=== PATIENT | female | born 1970 | race Caucasian/White ===

== ENCOUNTER 2016-11-14 05:22 | Inpatient (IN) | payer BC ==
[2016-10-16 14:59] VITALS: BMI 29.0
--- NOTE | 2016-10-16 15:34 | PAT Medication Instructions ---
Service Date Oct 16, 2016. Current Home Medication List Fexofenadine Hcl (Lorraine Allergy), 1 TAB PO QAM Multiple Vitamins W/ Minerals (Multi Adult Gummies), 1 TAB PO QAM Ranitidine Hcl (Zantac), 75 MG PO QAM Spironolactone (Aldactone), 25 MG PO QAM Venlafaxine Hcl (Venlafaxine Extended Rel), 37.5 MG PO QAM [Nexium], 4.6 MG PO QAM Medication Instructions For Your Scheduled Surgery - Hold the following medications the morning of surgery: Spironolactone (Aldactone), 25 MG PO QAM Multiple Vitamins W/ Minerals (Multi Adult Gummies), 1 TAB PO QAM Fexofenadine Hcl (Lorraine Allergy), 1 TAB PO QAM - Take the following medications the morning of surgery with a sip of water: Venlafaxine Hcl (Venlafaxine Extended Rel), 37.5 MG PO QAM Nexium, 4.6 MG PO QAM Ranitidine Hcl (Zantac), 75 MG PO QAM If you have any questions please call us at [phone] or [phone] ( [place]) or [phone]
--- NOTE | 2016-10-16 16:01 | DIAGNOSTIC IMAGING REPORT ---
TWO VIEW CHEST CLINICAL HISTORY: Preoperative examination. FINDINGS: PA and lateral chest radiographs are compared to study dated 04/28/2014. The cardiomediastinal silhouette is unremarkable. The lungs and pleural spaces are clear. There is no pneumothorax. The bony thorax appears intact. Cholecystectomy clips are noted in the right upper quadrant. IMPRESSION: No active disease in the chest. Electronically signed by: Pilo Ching M.D. 10/16/2016 3:59 PM Dictated Date/Time: 10/16/2016 3:59 PM
[2016-10-16 16:24] LABS: BASO % 0.4 %; BASO ABS # 0.04 K/uL (0-0.2); COMPLETE YES; EOS % 1.9 %; HEMATOCRIT 39.7 % (37-47); IG% 0.2 %; LYMPH % 33.3 %; LYMPH ABS # 3.15 K/uL (1.2-3.4); MEAN CELL VOLUME 81.7 fL (80-100); MEAN CORPUSCULAR HEMOGLOBIN 26.1 pg (25-34); MEAN PLATELET VOLUME 9.9 fL (7.4-10.4); MONO % 5.9 %; NEUT % 58.3 %; PLATELET COUNT 502 K/uL (130-400); RED BLOOD COUNT 4.86 M/uL (4.2-5.4); URINE APPEARANCE CLEAR (CLEAR); URINE BILIRUBIN NEG (NEG); URINE COLOR YELLOW; URINE NITRITE NEG (NEG); URINE SPECIFIC GRAVITY 1.006 (1.000-1.030); UROBILINOGEN NEG (NEG); WHITE BLOOD COUNT 9.47 K/uL (4.8-10.8)
[2016-10-16 16:28] LABS: MANUAL MICROSCOPIC REQUIRED? NO; REVIEW REQ? NO
[2016-10-16 16:32] LABS: PROTHROMBIN TIME (PATIENT) 10.6 SECONDS (9.0-12.0)
[2016-10-16 16:55] LABS: BUN/CREATININE RATIO 10.1 (10-20); CREATININE 0.7 mg/dl (0.60-1.20)
[2016-10-16 16:58] LABS: CALCIUM 9.1 mg/dl (8.5-10.1)
[2016-10-17 07:30] LABS: ESTIMATED AVERAGE GLUCOSE 105 mg/dl; HA1C FLAG Normal (Normal)
--- NOTE | 2016-11-13 14:12 | HISTORY & PHYSICAL EXAMINATION ---
DATE OF ADMISSION: 11/14/2016 CHIEF COMPLAINT: Right hip pain. HISTORY OF PRESENT ILLNESS: The patient is a 45-year-old female with known severe bilateral hip osteoarthritis despite her young age. She recently had a trial of intraarticular corticosteroid injections without significant relief. She continues to have significant pain and disability with activities of daily living and now desires to proceed with right total hip arthroplasty. PAST MEDICAL HISTORY: Heart palpitations from anxiety, depression, acid reflux. PAST SURGICAL HISTORY: Gallbladder surgery, sinus surgery. MEDICATIONS: Venlafaxine 37.5 mg daily, spironolactone 25 mg daily, Zantac p.r.n., Lorraine q.a.m., Mobic 15 mg daily. ALLERGIES: AMOXICILLIN, SULFA, LATEX. SOCIAL HISTORY AND REVIEW OF SYSTEMS: Noncontributory. PHYSICAL EXAMINATION: GENERAL: Well-nourished, well-developed young female who appears her stated age. HEAD, EYES, EARS, NOSE, AND THROAT: Normocephalic, atraumatic, extraocular movements intact, oropharynx pink and moist. NECK: Supple without adenopathy clear. LUNGS: Clear to auscultation bilaterally. HEART: Regular rate and rhythm. ABDOMEN: Soft, nontender, nondistended. EXTREMITIES: The upper extremities are within normal limits. The right hip demonstrates limited range of motion. There is limitation of active and passive internal/external rotation with pain at end range. X-RAYS: X-rays were reviewed. She has severe osteoarthritis about the right hip with complete loss of the joint space. There is deformation of the femoral head. There are large osteophytes about the femoral head and acetabulum. ASSESSMENT: Right hip degenerative joint disease. PLAN: Risks versus benefits were discussed. Consent was obtained. The patient's primary care physician is Monique Romano. Will proceed with right total hip arthroplasty upon preoperative workup and medical clearance.
[~2016-11-14] VITALS: Ht 162.6 cm; Wt 77.7 kg
[2016-11-14] VITALS (10 sets, daily range): BP systolic 97–133; BP diastolic 64–75; PULSE 74–96; TEMP 36.3–37.3; O2SAT 95–100; Ht 162.6 cm; Wt 77.7 kg
[~2016-11-14 05:22] MED LIST: FEXO1TAB49 PO; LACTATED RINGER'S 1000ML IV SCH; MULT1CHW37 PO; NEXIUM PO; RANI150T3 PO; SPIR25TA PO; VENL37.593 PO
[2016-11-14] MEDS ORDERED: GABAPENTIN 300 MG CAP PO SCH (06:00)
[2016-11-14] MEDS ORDERED: LACTATED RINGER'S 1000ML IV SCH ×2 (06:00)
[2016-11-14] MEDS ORDERED: VANCOMYCIN 1GM/270ML NSS 270 ML IV SCH (06:00)
[2016-11-14] MEDS ORDERED: VANCOMYCIN INJ 1,150 MG in SODIUM CHLORIDE 0.9% 250ML 250 ML IV SCH ×2 (06:00→18:00)
[2016-11-14] MEDS ORDERED: ACETAMINOPHEN 500 MG TAB PO SCH (06:00)
[2016-11-14] MEDS ORDERED: LACTATED RINGER'S 500 ML IV SCH (06:00)
[2016-11-14] MEDS ORDERED: ROPIVACAINE 5MG/ML 30 ML 150 MG, BUPIVACAINE/EPINEPHR 0.5% MPF 30 ML, KETOROLAC TROMETH... INFIL SCH ×7 (06:00)
[2016-11-14] MEDS ORDERED: FAMOTIDINE 20 MG TAB PO SCH (06:00)
[2016-11-14] MEDS ORDERED: DEXAMETHASONE 4 MG TAB PO SCH (06:00)
[2016-11-14] MEDS ORDERED: METOCLOPRAMIDE HCL 10 MG TAB PO SCH (06:00)
[2016-11-14] MEDS ORDERED: BACITRACIN 50000 UNIT VIAL ONE (06:29)
[2016-11-14] MEDS ORDERED: ORTHO JOINT ANESTHETIC ONE (06:29)
[2016-11-14] MEDS ORDERED: POVIDONE-IODINE OP SOLN 30 ML BTL ONE (06:29)
[2016-11-14] MEDS ORDERED: ONDANSETRON INJ 2 MG/ML 2 ML VIAL ONE (06:33)
[2016-11-14] MEDS ORDERED: PROPOFOL IV EMULSION 10 MG/ML 20 ML VIAL IV ONE ×3 (06:33→08:11)
[2016-11-14] MEDS ORDERED: MIDAZOLAM HCL 1 MG/ML 2ML VIAL ONE ×2 (06:34→07:09)
[2016-11-14] MEDS ORDERED: FENTANYL CITRATE INJ 50 MCG/1 ML 2 ML VIAL ONE (06:34)
[2016-11-14] MEDS ORDERED: BUPIVACAINE 0.5 % 5 MG/1 ML PF 10ML VIAL ONE (06:37)
[2016-11-14] MEDS ORDERED: ATROPINE SULFATE 0.1 MG/ML 5ML SYR IV PRN (06:45)
[2016-11-14] MEDS: TRANEXAMIC ACID INJ 1,000 MG in SODIUM CHLORIDE 0.9% 100ML 100 ML IV SCH ×2 (06:45→11:12)
[2016-11-14] MEDS ORDERED: EpHEDrine SULFATE INJ 50 MG/ML AMP IV PRN (06:45)
[2016-11-14] MEDS ORDERED: ONDANSETRON INJ 2 MG/ML 2 ML VIAL IV PRN ×2 (06:45→08:45)
[2016-11-14] MEDS ORDERED: FENTANYL CITRATE INJ 50 MCG/1 ML 2 ML VIAL IV PRN (06:45)
--- NOTE | 2016-11-14 06:50 | History & Physical Bridge Note ---
H&P Re-Evaluation Bridge Note: I have examined the patient, reviewed the History & Physical and in the interval since the performance of the History & Physical I have noted the following changes of clinical significance: No changes noted
[2016-11-14] MEDS ORDERED: PHENYLEPHRINE HCL INJ 10 MG/ML VIAL ONE (07:41)
[2016-11-14] MEDS ORDERED: EpHEDrine SULFATE 50MG/5ML SYR ONE (07:42)
--- NOTE | 2016-11-14 07:56 | [facility] Post Operative Brief Note ---
Immediate Operative Summary Operative Date November 14, 2016. Pre-Operative Diagnosis Right hip degenerative joint disease Post-Operative Diagnosis Right hip degenerative joint disease Procedure(s) Performed Right Total Hip Arthroplasty Surgeon DR. Etienne Maciel Laboratory Courier Surgeon(s) Dale Betancur PA-C Estimated Blood Loss 150ML Findings severe OA Specimens A: Right Femoral head Disposition Recovery Room / PACU
--- NOTE | 2016-11-14 08:39 | OPERATIVE REPORT ---
DATE OF OPERATION: 11/14/2016 PREOPERATIVE DIAGNOSIS: Osteoarthritis right hip. POSTOPERATIVE DIAGNOSIS: Osteoarthritis right hip. PROCEDURE: Right connective total hip arthroplasty. SURGEON: Dr. Maciel. ELECTION SUPERVISOR: Dale Betancur PA-C. ANESTHESIA: spinal. COMPLICATIONS: None. OPERATION AND FINDINGS: PROCEDURE: Following induction of adequate spinal anesthesia, the patient was placed in left lateral decubitus position and right Sandy-Langenbeck incision was made. Subcutaneous tissue was sharply dissected. Electrocautery used for hemostasis. The fascia was incised throughout the length of the wound and a baker scissor placed beneath the short external rotators. The pyriformis was tagged with #1 Vicryl. The short external rotators were divided from the posterior aspect of the femur using electrocautery. These were swept posteriorly. A T-capsulotomy incision was made and the hip was dislocated using a combination of flexion, adduction, and internal rotation. Exposure of the femoral neck with old-style Hohmann and a blunt Hohmann was carried out and a femoral rasp was utilized as a guide for making the appropriate level femoral neck cut. This bone fragment was removed and reserved on the back table. Next, attention was turned to the acetabulum where bone hook was used to retract the femur while the offset retractors were placed anterior and posteriorly. A double-angled Hohmann was placed in superior and anterior position exposing the acetabulum nicely. Acetabular labrum as well as posterior capsule elements were removed using a long knife and a long pickup. Fovea centralis was cleared of all soft tissue. Sequential reamings were carried up to a size 52 and decision was made to proceed with impaction of a 52 trabecular metal cup. This was impacted and held using a single 35 mm bone screw. The acetabular liner was placed with 15 of elevated posterior wall in the superior and posterior position. Next, attention was turned to the femoral portion of the case where a Bovie and pickup was used to further clear short external rotators from their insertion on the femur. Box osteotome was used to gain access to the femoral canal and the T-handled rasp and a rattail rasp were used to further open and lateral the canal. Sequentially raspings were carried up to a size 3 which gave good fit and fill of the proximal femur. A trial reduction was carried out and size 3 offset femoral neck component was chosen as the size to be used. A +0 x 36 mm ceramic femoral head was impacted into position, +0 head was utilized. The trial reduction was stable in all degrees of rotation with no ycho-ot-rent impingement. The hip was dislocated. The trial components were removed and the final femoral stem, neck, and femoral head combination were assembled on the back table and impacted into position. Hip was relocated. Range of motion checked once again successful and the wound was irrigated. The pyriformis repaired to the greater trochanter using #1 Vicryl [id number] suture. A Hemovac drain was placed and the fascia was closed using #1 Vicryl, subcutaneous tissue was closed using 0 Dexon, and skin was closed with claire. Sterile dressing of Adaptic, 4 x 4's, ABDs, and foam tape was applied. The patient tolerated the procedure well. Due to the complex nature of the procedure, the entire surgery was performed with the operational assistance of Dale Betancur PA-C. The stonecutter assistant, under direct supervision, was involved in the actual performance of all aspects of the surgical procedure including hemostasis, tissue retraction and incision, instrument management, patient positioning, and wound closure. I attest to the content of the Intraoperative Record and any orders documented therein. Any exceptions are noted below. ALLIE
[2016-11-14] MEDS ORDERED: MoRPHine SULFATE 2 MG/ML CARP IV PRN (08:45)
[2016-11-14] MEDS ORDERED: MAGNESIUM HYDROXIDE SUSP 30 ML UDC PO PRN (08:45)
[2016-11-14] MEDS ORDERED: ZOLPIDEM TARTRATE 5 MG TAB PO PRN (08:45)
[2016-11-14] MEDS ORDERED: METOCLOPRAMIDE HCL INJ 5 MG/ML 2 ML VIAL IV PRN (08:45)
[2016-11-14] MEDS ORDERED: ALUMINUM/MAGNESIUM/SIMETH (MAALOX MAX) 30 ML UDC PO PRN (08:45)
--- NOTE | 2016-11-14 09:10 | Anesthesiology Progress Note ---
Anesthesia Post Op Note Date & Time November 14, 2016 at 09:10 Vital Signs Pain Intensity: 0 Vital Signs Past 12 Hours Date Time Temp Pulse Resp B/P Pulse Ox O2 Delivery O2 Flow Rate FiO2 11/14/16 09:00 76 16 110/66 100 Nasal Cannula 2 11/14/16 08:50 75 16 125/71 100 Mask 6 11/14/16 08:40 74 16 119/66 100 Mask 10 11/14/16 08:32 36.7 67 16 110/70 100 Mask 10 11/14/16 06:10 36.6 78 18 118/75 98 Room Air Notes Mental Status: alert / awake / arousable, participated in evaluation Pt Amnestic to Procedure: Yes Nausea / Vomiting: adequately controlled Pain: adequately controlled Airway Patency, RR, SpO2: stable & adequate BP & HR: stable & adequate Hydration State: stable & adequate Neuraxial Anesthesia: was administered, sensory block is resolving Anesthetic Complications: no major complications apparent
--- NOTE | 2016-11-14 09:39 | DIAGNOSTIC IMAGING REPORT ---
RIGHT PELVIS/UNILATERAL HIP 1 VIEW CLINICAL HISTORY: Postoperative evaluation. COMPARISON: Right hip radiographs March 24, 2013. FINDINGS: Alignment of the total right hip arthroplasty is anatomic. There is no periprosthetic fracture or unexpected radiopaque foreign body. Surgical drain and skin claire are present. There is moderate to severe arthritis of the left hip. IMPRESSION: Expected findings following total right hip arthroplasty. Electronically signed by: Abhay Albarran M.D. 11/14/2016 9:38 AM Dictated Date/Time: 11/14/2016 9:36 AM
[2016-11-14] MEDS ORDERED: MoRPHine SULFATE 10 MG/ML CARP/VIAL IV PRN (10:00)
[2016-11-14] MEDS ORDERED: MoRPHine SULFATE 4 MG/ML 1 ML CARP\\VIAL IV PRN (10:00)
[2016-11-14] MEDS: D5W AND 1/2NSS + 20MEQ KCL 1,000 ML IV SCH ×2 (11:09→21:47)
[2016-11-14] MEDS: MULTIVITAMIN TAB PO SCH (13:06)
[2016-11-14] MEDS: SPIRONOLACTONE 25 MG TAB PO SCH (13:06)
[2016-11-14] MEDS: FERROUS GLUCONATE 324 MG TAB PO SCH ×2 (13:06→17:56)
[2016-11-14] MEDS: PANTOprazole SOD 40 MG TAB PO SCH (13:07)
[2016-11-14] MEDS: VENLAFAXINE HCL XR 37.5 MG CAPXR PO SCH (13:07)
[2016-11-14] MEDS ORDERED: NURSING VERBAL MED ORDER ONE (13:30)
[2016-11-14] MEDS: KETOROLAC TROMETHAMINE 30 MG/ML VIAL IV. SCH ×2 (14:01→20:15)
[2016-11-14] MEDS: ACETAMINOPHEN 500 MG TAB PO SCH ×2 (14:01→21:48)
[2016-11-14] MEDS: DOCUSATE SODIUM 100 MG CAP PO SCH (21:47)
[2016-11-14] MEDS: ASPIRIN 81 MG ECTAB PO SCH (21:47)
[2016-11-14] MEDS: PREGABALIN 75 MG CAP PO SCH (21:48)
[2016-11-14] MEDS: OXYCODONE HCL IR 5 MG TAB (IMMEDIATE RELEASE) PO PRN (23:12)
[2016-11-15] MEDS: KETOROLAC TROMETHAMINE 30 MG/ML VIAL IV. SCH ×2 (02:08→08:32)
[2016-11-15 03:15] VITALS: BP 103/64; PULSE 97; TEMP 36.6; O2SAT 99
[2016-11-15 05:50] LABS: BASO % 0.1 %; BASO ABS # 0.01 K/uL (0-0.2); COMPLETE YES; HEMATOCRIT 31.3 % (37-47); IG% 0.3 %; LYMPH % 11.9 %; LYMPH ABS # 2.17 K/uL (1.2-3.4); MEAN CELL VOLUME 80.5 fL (80-100); MEAN CORPUSCULAR HEMOGLOBIN 25.2 pg (25-34); MEAN CORPUSCULAR HGB CONC 31.3 g/dl (32-36); MEAN PLATELET VOLUME 9.4 fL (7.4-10.4); NEUT % 79.7 %; PLATELET COUNT 385 K/uL (130-400); RED BLOOD COUNT 3.89 M/uL (4.2-5.4); WHITE BLOOD COUNT 18.27 K/uL (4.8-10.8)
[2016-11-15] MEDS: ACETAMINOPHEN 500 MG TAB PO SCH ×3 (06:00→21:32)
[2016-11-15 06:26] LABS: CREATININE 0.59 mg/dl (0.60-1.20)
[2016-11-15 06:27] LABS: CALCIUM 8.1 mg/dl (8.5-10.1); POTASSIUM 4.6 mmol/L (3.5-5.1)
[2016-11-15] MEDS: D5W AND 1/2NSS + 20MEQ KCL 1,000 ML IV SCH (06:39)
[2016-11-15] MEDS ORDERED: DEXAMETHASONE INJ 10 MG in SYRINGE 0 ML IV SCH (07:30)
[2016-11-15 07:56] VITALS: BP 105/66; PULSE 76; TEMP 36.6; O2SAT 98
--- NOTE | 2016-11-15 08:10 | Anesthesiology Progress Note ---
Anesthesia Post Op Note Date & Time November 15, 2016 at 08:09 Vital Signs Pain Intensity: 3.0 Vital Signs Past 12 Hours Date Time Temp Pulse Resp B/P Pulse Ox O2 Delivery O2 Flow Rate FiO2 11/15/16 07:56 36.6 76 17 105/66 98 Room Air 11/15/16 03:15 36.6 97 18 103/64 99 Room Air 11/14/16 23:50 Room Air 11/14/16 22:55 36.9 86 18 103/64 98 Room Air 11/14/16 20:10 Room Air Notes Mental Status: alert / awake / arousable, participated in evaluation Pt Amnestic to Procedure: Yes Nausea / Vomiting: adequately controlled Pain: adequately controlled Airway Patency, RR, SpO2: stable & adequate BP & HR: stable & adequate Hydration State: stable & adequate Neuraxial Anesthesia: was administered, sensory block resolved Anesthetic Complications: no major complications apparent
--- NOTE | 2016-11-15 08:21 | Orthopedic Progress Note ---
Orthopedic Progress Note Date of Service November 15, 2016. Subjective Post OP Day: 1 Reports: complaints (right foot numbness), feeling well, Denies: SOB, calf pain , chest pain, light headedness, nausea / vomiting Additional Notes: Pt awake, alert. Pain controlled presently. States that her foot has some numbness in it and she can't dorsiflex the foot very well. No other complaints. Asked about her Nexium which was not ordered. Explained that the hospital usually does not carry that on their formulary and that Protonix has been ordered for her. She states that it seems to be helping her and is ok with continuing the Protonix for now. Objective calves soft nontender, hip located, dressing C/D/I (Prevena intact), A&O x3, toes mobile She has good plantar flexion. Dorsiflexion is weak. She can dorsiflex the great toe and foot but cannot perform full dorsiflexion. Date Time Temp Pulse Resp B/P Pulse Ox O2 Delivery O2 Flow Rate FiO2 11/15/16 07:56 36.6 76 17 105/66 98 Room Air 11/15/16 03:15 36.6 97 18 103/64 99 Room Air 11/14/16 23:50 Room Air 11/14/16 22:55 36.9 86 18 103/64 98 Room Air 11/14/16 20:10 Room Air 11/14/16 19:43 37.3 90 18 123/75 95 Room Air 11/14/16 15:50 36.5 88 18 107/67 97 Room Air 11/14/16 12:44 96 18 107/68 100 Nasal Cannula 2.0 89 11/14/16 11:43 88 16 101/67 100 Nasal Cannula 2.0 11/14/16 10:45 80 16 97/64 100 Nasal Cannula 2.0 11/14/16 10:14 74 16 112/74 100 Nasal Cannula 2.0 11/14/16 09:40 Nasal Cannula 2.0 11/14/16 09:40 100 Nasal Cannula 2.0 11/14/16 09:40 36.3 74 16 106/66 100 Nasal Cannula 11/14/16 09:30 70 16 112/68 100 Nasal Cannula 2 11/14/16 09:20 64 16 112/71 100 Nasal Cannula 2 11/14/16 09:10 36.4 81 16 110/71 99 Nasal Cannula 2 11/14/16 09:00 76 16 110/66 100 Nasal Cannula 2 11/14/16 08:50 75 16 125/71 100 Mask 6 11/14/16 08:40 74 16 119/66 100 Mask 10 11/14/16 08:32 36.7 67 16 110/70 100 Mask 10 Laboratory Results 24 Hours: Test 11/15/16 05:26 White Blood Count 18.27 K/uL Red Blood Count 3.89 M/uL Hemoglobin 9.8 g/dL Hematocrit 31.3 % Mean Corpuscular Volume 80.5 fL Mean Corpuscular Hemoglobin 25.2 pg Mean Corpuscular Hemoglobin Concent 31.3 g/dl Platelet Count 385 K/uL Mean Platelet Volume 9.4 fL Neutrophils (%) (Auto) 79.7 % Lymphocytes (%) (Auto) 11.9 % Monocytes (%) (Auto) 8.0 % Eosinophils (%) (Auto) 0.0 % Basophils (%) (Auto) 0.1 % Neutrophils # (Auto) 14.57 K/uL Lymphocytes # (Auto) 2.17 K/uL Monocytes # (Auto) 1.46 K/uL Eosinophils # (Auto) 0.00 K/uL Basophils # (Auto) 0.01 K/uL Assessment & Plan Assessment: POD 1 s/p Right FROILAN Mild drop foot Plan: Drop foot may be due to intra op injection. Continue to follow. Usually clears within 48 hours. If continues to be present, she may need an AFO brace. PT/OT today Planning for HH upon dc. Inhouse Planning Pain Management: Toradol, Morphine, PO Tylenol, Oxy IR DVT Prophylaxis: TEDs, SCDs, ASA Discharge Planning Discharge Planning: home with home health Pain Management: PO Tylenol, Oxy IR DVT Prophylaxis: TEDs, ASA Therapy: Physical Therapy
[2016-11-15] MEDS: MULTIVITAMIN TAB PO SCH (08:32)
[2016-11-15] MEDS: FERROUS GLUCONATE 324 MG TAB PO SCH ×3 (08:32→17:24)
[2016-11-15] MEDS: ASPIRIN 81 MG ECTAB PO SCH ×2 (08:32→20:40)
[2016-11-15] MEDS: PREGABALIN 75 MG CAP PO SCH ×2 (08:32→20:40)
[2016-11-15] MEDS: DOCUSATE SODIUM 100 MG CAP PO SCH ×2 (08:32→20:40)
[2016-11-15] MEDS: VENLAFAXINE HCL XR 37.5 MG CAPXR PO SCH (08:33)
[2016-11-15] MEDS: PANTOprazole SOD 40 MG TAB PO SCH (08:33)
[2016-11-15] MEDS: SPIRONOLACTONE 25 MG TAB PO SCH (08:33)
[2016-11-15 10:25] VITALS: BP 106/68; PULSE 71; O2SAT 97
[2016-11-15] MEDS: OXYCODONE HCL IR 5 MG TAB (IMMEDIATE RELEASE) PO PRN ×2 (11:29→20:41)
--- NOTE | 2016-11-15 14:03 | Discharge Instructions ---
Discharge Instructions Date of Service November 15, 2016. Admission Reason for Admission: Right Hip Degenerative Joint Disease Discharge Discharge Diagnosis / Problem: Right Hip Djd Discharge Goals Goal(s): Decrease discomfort, Improve function Activity Recommendations Activity Limitations: per Instructions/Follow-up section Weightbearing Status: Right weightbearing (as tolerated) . Instructions / Follow-Up Instructions / Follow-Up ACTIVITY RECOMMENDATIONS: SELF CARE INSTRUCTIONS AFTER TOTAL HIP REPLACEMENT Until the incision and soft tissues around your hip have healed, there is a possibility that the hip prosthesis could dislocate. A. Observe the following precautions to prevent dislocation: 1. Don't bend your hip greater than 90 degrees. 2. Avoid crossing your legs or ankles while standing or lying. 3. Sit with your feet placed 6 inches apart. 4. When sitting, keep your knees below your hips. Sit on a firm surface, avoid deep, soft chairs and couches. Use an elevated toilet seat in the bathroom. 5. Don't bend over at the waist. Use a long handled shoehorn and a sock aid to help you put on your shoes and socks. A assistant chief train dispatcher can help you pickle processor objects that are too high or too low to reach. 6. Keep car riding to a minimum for at least one month after surgery. B. Your balance may be shaky for a while. Use crutches or a walker until directed by your doctor. C. Use hand rails when walking on stairs. D. Wear low heeled shoes with non-slip soles. E. Be sure that your floors are free of things that could trip you - throw rugs , electrical cords, small objects. Avoid wet and waxed floors, especially with crutches and canes. F. Try to walk several times a day with rest periods between. G. Continue with all the exercises taught to you in the hospital. Again, make walking a part of your daily routine. SPECIAL CARE INSTRUCTIONS: VERY IMPORTANT TO READ AND REVIEW A. You may still be at risk for phlebitis and blood clots. 1. Wear surgical stockings (CLOVIS hose) for 2 weeks after surgery to improve circulation and reduce swelling. 2. Take Aspirin 81mg twice daily for 4 weeks or as directed by your doctor. This is your blood thinner. 3. High risk patients may be prescribed a stronger blood thinner if necessary. 4. If you are on Coumadin normally, your family doctor/manufacturing applications engineer should monitor your blood work. Expect a phone call the day of or the day after bloodwork is drawn to adjust your dosage. B. You must take antibiotics before having dental work, bladder, bowel and other surgery. Your doctor will provide you with a permanent card to carry describing precautions. C. Call [facility] if you have a fever, redness or swelling around the incision, cloudy drainage from incision, or sudden increase in pain in your hip, not relieved by your regular pain medication. D. Please call the office at if you have any concerns or questions about your operation or recovery. * YOU MAY SHOWER, NO TUB BATHS UNTIL CLEARED BY YOUR DOCTOR. * WEAR CLOVIS HOSE 20 HOURS PER DAY FOR 2 WEEKS. * YOU SHOULD USE A WALKER OR CRUTCHES FOR 2-4 WEEKS. THIS WILL HELP PREVENT STRAIN ON YOUR HIP MUSCLE AND ALLOW IT TO HEAL PROPERLY. YOU MAY WEAN TO A CANE TOLERATED. * MOST PATIENTS WILL HAVE HOME NURSING FOR THERAPY. IF YOU DECIDE TO DO OUTPATIENT PHYSICAL THERAPY, PLEASE SCHEDULE THIS 3 TIMES PER WEEK. * Prevena- This is a large suction dressing covering your incision. This will help pull any excess drainage from the wound and allow your incision to heal properly. You may shower with this if you can keep the unit outside of the shower. If any bleeding or leakage is noted please call your doctor's office. This will remain on your incision for 7 days and then should be removed. This can be done yourself or by the home nursing staff if applicable. The entire unit is disposable once removed. Once removed, keep incision clean and dry. If redness or drainage is noted, please call your surgeon. . FOLLOW UP VISIT: If appointment is not already scheduled: Please call [facility] to make a follow-up appointment for 2 weeks after your surgery at . Current Hospital Diet Patient's current hospital diet: Regular Diet Discharge Diet Recommended Diet: Regular Diet Procedures Procedures Performed: Right Total Hip Arthroplasty Pending Studies Studies pending at discharge: no Laboratory Results Hemoglobin A1c Test 10/16/16 15:40 Range/Units Estimated Average Glucose 105 mg/dl Hemoglobin A1c 5.3 4.5-5.6 % Medical Emergencies . Who to Call and When: Medical Emergencies: If at any time you feel your situation is an emergency, please call 911 immediately. . Non-Emergent Contact Non-Emergency issues call your: Surgeon Call Non-Emergent contact if: temperature is above 101.5, your pain is not controlled, your pain is worsening, wound has increased drainage, wound has increased redness . "Provider Documentation" section prepared by Jose Rivas. . VTE Core Measure Inpt VTE Proph given/why not?: Other Anticoagulation, T.E.D. Stockings, SCD's [place] Drug Monitoring Program Search Results: patient reviewed within database, no issues identified
[2016-11-15 15:16] VITALS: BP 127/73; PULSE 84; TEMP 36.6; O2SAT 96
[2016-11-15 23:35] VITALS: BP 115/73; PULSE 83; TEMP 36.7; O2SAT 99
[2016-11-16] MEDS: ACETAMINOPHEN 500 MG TAB PO SCH (05:53)
[2016-11-16 07:10] VITALS: BP 111/75; PULSE 72; TEMP 36.6; O2SAT 98
--- NOTE | 2016-11-16 08:20 | Orthopedic Progress Note ---
Orthopedic Progress Note Date of Service November 16, 2016. Subjective Post OP Day: 2 Reports: complaints (R FOOT DROP PERSISTS ), feeling well, pain controlled w PO medications, Denies: SOB, calf pain, light headedness, nausea / vomiting Objective calves soft nontender, N/V intact, hip located, dressing C/D/I, A&O x3, toes mobile Date Time Temp Pulse Resp B/P Pulse Ox O2 Delivery O2 Flow Rate FiO2 11/16/16 07:10 36.6 72 16 111/75 98 Room Air 11/15/16 23:42 Room Air 11/15/16 23:35 36.7 83 16 115/73 99 Room Air 11/15/16 16:30 Room Air 11/15/16 15:16 36.6 84 18 127/73 96 Room Air 11/15/16 10:25 71 97 Assessment & Plan Assessment: POD 2 s/p Right FROILAN FOOT DROP Plan: Drop foot PERSITS WILL NEED AFO CONSULT PLACED NOT AVAILIBLE UNTIL FRIDAY PT/OT today Planning for HH upon dc. PT OK W DC AND GET BRACE AT HOME Inhouse Planning Pain Management: Toradol, Morphine, PO Tylenol, Oxy IR DVT Prophylaxis: TEDs, SCDs, ASA Discharge Planning Discharge Planning: home with home health Pain Management: PO Tylenol, Oxy IR DVT Prophylaxis: TEDs, ASA Therapy: Physical Therapy
[2016-11-16] MEDS: OXYCODONE HCL IR 5 MG TAB (IMMEDIATE RELEASE) PO PRN (08:52)
[2016-11-16] MEDS: PANTOprazole SOD 40 MG TAB PO SCH (08:53)
[2016-11-16] MEDS: MULTIVITAMIN TAB PO SCH (08:53)
[2016-11-16] MEDS: DOCUSATE SODIUM 100 MG CAP PO SCH (08:53)
[2016-11-16] MEDS: FERROUS GLUCONATE 324 MG TAB PO SCH (08:53)
[2016-11-16] MEDS: ASPIRIN 81 MG ECTAB PO SCH (08:53)
[2016-11-16] MEDS: VENLAFAXINE HCL XR 37.5 MG CAPXR PO SCH (08:54)
[2016-11-16] MEDS: SPIRONOLACTONE 25 MG TAB PO SCH (08:54)
[2016-11-16] MEDS: PREGABALIN 75 MG CAP PO SCH (08:59)
[2016-11-16] MEDS ORDERED: ASPEC81 PO (09:16)
[2016-11-16] MEDS ORDERED: OXYSR10 PO (09:16)
[2016-11-16] MEDS ORDERED: RXC5 PO (09:16)
[2016-11-16] MEDS ORDERED: ACET-1138 PO (09:16)
[2016-11-16 10:44] VITALS: BP 111/75; PULSE 72; TEMP 36.6; O2SAT 98
--- NOTE | 2016-11-29 10:45 | DISCHARGE SUMMARY ---
CHIEF COMPLAINT: Right hip pain. Please see complete history and physical examination. HOSPITAL COURSE: The patient underwent right total hip arthroplasty without complication. She tolerated the procedure well and was discharged to recovery room in stable condition. Her postoperative course was relatively uneventful. Her postoperative pain was reasonably well-controlled with a combination of spinal anesthesia, intraoperative joint injection, IV, and oral pain medications. She was started on aspirin for DVT prophylaxis. She also utilized CLOVIS stockings and SCDs for additional prophylaxis. Her H&H was stable and did not require transfusion. Her surgical drain was discontinued by postoperative day 2, her surgical dressing will remain in place for approximately 7 days postoperative. She tolerated postoperative physical therapy reasonably well, she was ambulating and transferring appropriately. She was observing all total hip precautions. She was discharged home on postoperative day 2. She will continue her physical therapy at home. She will continue her aspirin for DVT prophylaxis and follow up in our office in approximately 10-14 days for her initial postop evaluation.
[2017-04-30] MEDS ORDERED: ESOM20CA PO (09:52)
[2017-04-30] MEDS ORDERED: CLR10 PO (09:52)
[2017-04-30] MEDS ORDERED: LOVA10TA3 PO (09:52)
[2017-04-30] MEDS ORDERED: VENL75CA73 PO (09:52)
[2017-04-30] MEDS ORDERED: ACET-1256 PO (09:53)
[2017-04-30] MEDS ORDERED: [UNRECOGNIZED DRUG - CODE] PO (09:55)
[2017-04-30] MEDS ORDERED: VITACAP26 PO (09:55)
== END 2016-11-16 12:31 | disposition home health service (06) | DRG 470 ==
LOC: ENRESERVDT → ENRESERVTM → C.ACU 05:22 → C.3E 08:38
PROC: 0SR903A Replacement of Right Hip Joint with Ceramic Synthetic Substitute, Uncemented, Open Approach (ICD-10-PCS; principal; 2016-11-14 07:00)
DX: M16.11 Unilateral primary osteoarthritis, right hip (principal); M21.371 Foot drop, right foot; K21.9 Gastro-esophageal reflux disease without esophagitis; F32.9 Major depressive disorder, single episode, unspecified; F41.9 Anxiety disorder, unspecified; Z79.899 Other long term (current) drug therapy

== ENCOUNTER 2017-05-14 06:48 | Inpatient (IN) | payer BC ==
--- NOTE | 2017-04-30 10:25 | PAT Medication Instructions ---
Service Date Apr 30, 2017. Current Home Medication List Acetaminophen (Tylenol), 1,000 MG PO PRN\ Esomeprazole Magnesium (Nexium), 20 MG PO QAM Loratadine (Claritin), 10 MG PO QAM Lovastatin (Mevacor), 10 MG PO QAM Multiple Vitamins W/ Minerals (Multi Adult Gummies), 1 TAB PO QPM Ranitidine Hcl (Zantac), 75 MG PO PRN Spironolactone (Aldactone), 25 MG PO QAM Venlafaxine Hcl (Venlafaxine Extended Rel), 75 MG PO QPM Vitamin E (Hhvb-G-Vfahs 1000), 1,000 UNITS PO QPM Vitamins C & E (Vitamin C), 1 TAB PO QPM Medication Instructions For Your Scheduled Surgery - Hold the following medications 2 weeks prior to surgery: Vitamin E (Mgoc-O-Whpyz 1000), 1,000 UNITS PO QPM - Hold the following medications the morning of surgery: Loratadine (Claritin), 10 MG PO QAM Spironolactone (Aldactone), 25 MG PO QAM - Take the following medications the morning of surgery with a sip of water: Ranitidine Hcl (Zantac), 75 MG PO PRN (if needed) Lovastatin (Mevacor), 10 MG PO QAM Esomeprazole Magnesium (Nexium), 20 MG PO QAM Acetaminophen (Tylenol), 1,000 MG PO PRN (if needed, can take up to four hours before surgery) - Take the following medications as scheduled the night before surgery: Vitamins C & E (Vitamin C), 1 TAB PO QPM Venlafaxine Hcl (Venlafaxine Extended Rel), 75 MG PO QPM Ranitidine Hcl (Zantac), 75 MG PO PRN (if needed) Multiple Vitamins W/ Minerals (Multi Adult Gummies), 1 TAB PO QPM If you have any questions please call us at [phone] or [phone] or [phone]
[2017-04-30 11:18] LABS: BASO % 0.5 %; BASO ABS # 0.04 K/uL (0-0.2); COMPLETE YES; EOS % 1.9 %; HEMATOCRIT 35.9 % (37-47); IG% 0.2 %; LYMPH % 29.7 %; LYMPH ABS # 2.49 K/uL (1.2-3.4); MEAN CELL VOLUME 78.7 fL (80-100); MEAN CORPUSCULAR HEMOGLOBIN 25.7 pg (25-34); MEAN CORPUSCULAR HGB CONC 32.6 g/dl (32-36); MEAN PLATELET VOLUME 9.9 fL (7.4-10.4); MONO % 6.6 %; NEUT % 61.1 %; PLATELET COUNT 488 K/uL (130-400); RED BLOOD COUNT 4.56 M/uL (4.2-5.4); WHITE BLOOD COUNT 8.37 K/uL (4.8-10.8)
[2017-04-30 11:18] LABS: URINE APPEARANCE CLEAR (CLEAR); URINE BILIRUBIN NEG (NEG); URINE COLOR YELLOW; URINE NITRITE NEG (NEG); URINE SPECIFIC GRAVITY 1.007 (1.000-1.030); UROBILINOGEN NEG (NEG)
[2017-04-30 11:21] LABS: MANUAL MICROSCOPIC REQUIRED? NO; REVIEW REQ? NO
[2017-04-30 11:24] LABS: ESTIMATED AVERAGE GLUCOSE 103 mg/dl; HA1C FLAG Normal (Normal)
[2017-04-30 11:25] LABS: PARTIAL THROMBOPLASTIN RATIO 1.1; PROTHROMBIN TIME (PATIENT) 10.6 SECONDS (9.0-12.0)
[2017-04-30 11:26] LABS: BUN/CREATININE RATIO 8.9 (10-20); CREATININE 0.67 mg/dl (0.60-1.20); POTASSIUM 4.4 mmol/L (3.5-5.1)
--- NOTE | 2017-05-13 14:34 | HISTORY & PHYSICAL EXAMINATION ---
DATE OF ADMISSION: 05/14/2017 CHIEF COMPLAINT: Left hip pain. HISTORY OF PRESENT ILLNESS: The patient is a 46-year-old female with known osteoarthritis about her left hip. She had a previous right hip arthroplasty in the recent past. She has done well with this. She also has known severe osteoarthritis about her left hip, which affects her activities of daily living. She has pain with prolonged weightbearing and standing activities. She has difficulty with any kneeling, bending, or squatting activities. She now desires to proceed with left total hip arthroplasty. PAST MEDICAL HISTORY: Depression, acid reflux, and osteoarthritis. PAST SURGICAL HISTORY: Right hip as above, cholecystectomy, and sinus surgery. MEDICATIONS: Venlafaxine 37.5 mg daily, spironolactone 25 mg daily, Zantac p.r.n., and Nexium q.a.m. ALLERGIES: INCLUDE AMOXICILLIN, SULFA AND LATEX, WHICH ALL CAUSE HIVES. SOCIAL HISTORY AND REVIEW OF SYSTEMS: Noncontributory. PHYSICAL EXAMINATION: GENERAL: Well-nourished and well-developed young female, who appears her stated age. HEENT: Normocephalic and atraumatic. Extraocular movements intact. Oropharynx is pink and moist. NECK: Supple without adenopathy. LUNGS: Clear to auscultation bilaterally. HEART: Regular rate and rhythm. ABDOMEN: Soft, nontender, and nondistended. EXTREMITIES: Upper extremities are within normal limits. Left hip demonstrates limited range of motion. There is limitation of active and passive internal/external rotation with pain at end range. X-RAYS: X-rays were reviewed. The right hip demonstrates well-aligned total hip. The left hip demonstrates severe osteoarthritis with complete loss of the joint space. There is osteophyte formation about the femoral head and acetabulum. ASSESSMENT: Left hip degenerative joint disease. PLAN: Risks versus benefits were discussed. Consent was obtained. The patient's primary care physician is Francia Romano, nurse practitioner. We will proceed with left total hip arthroplasty upon preop workup and medical clearance. ALLIE
[~2017-05-14] VITALS: Ht 162.6 cm; Wt 79.5 kg
[2017-05-14] VITALS (7 sets, daily range): BP systolic 104–118; BP diastolic 67–80; PULSE 64–80; TEMP 36.5–37; O2SAT 96–100; Ht 162.6 cm; Wt 79.5 kg
[2017-05-14] MEDS: TRANEXAMIC ACID INJ 1,000 MG in SYRINGE 0 ML IV SCH ×2 (06:30→09:16)
[~2017-05-14 06:48] MED LIST changes: +ACET-1256 PO; +ACETAMINOPHEN 500 MG TAB PO SCH; +BUPIVACAINE 0.5 % 5 MG/1 ML PF 10ML VIAL ONE; +CEFAZOLIN 2000MG IV PUSH 10 ML IV SCH; +CLR10 PO; +CeleBREX 200 MG CAP PO SCH; +DEXAMETHASONE 4 MG TAB PO SCH; +ESOM20CA PO; +FAMOTIDINE 20 MG TAB PO SCH; -FEXO1TAB49 PO; +GABAPENTIN 300 MG CAP PO SCH; +LACTATED RINGER'S 1000ML 1,000 ML IV SCH; +LACTATED RINGER'S 1000ML 500 ML IV SCH; -LACTATED RINGER'S 1000ML IV SCH; +LOVA10TA3 PO; +METOCLOPRAMIDE HCL 10 MG TAB PO SCH; -NEXIUM PO; +ROPIVACAINE 5MG/ML 30 ML 150 MG, BUPIVACAINE 0.5% MPF INJ 30 ML, EpINEphrine HCL INJ 0.... INFIL SCH; -VENL37.593 PO; +VENL75CA73 PO; +VITACAP26 PO; +[UNRECOGNIZED DRUG - CODE] PO
[2017-05-14] MEDS ORDERED: LIDOCAINE HCL 2% 2 ML VIAL (20MG/ML) ONE (07:44)
[2017-05-14] MEDS: LACTATED RINGER'S 1000ML IV SCH ×2 (07:45→08:55)
[2017-05-14] MEDS ORDERED: PROPOFOL IV EMULSION 10 MG/ML 20 ML VIAL IV ONE ×2 (07:47→09:47)
[2017-05-14] MEDS ORDERED: MIDAZOLAM HCL 1 MG/ML 2ML VIAL ONE ×3 (07:48→09:37)
[2017-05-14] MEDS ORDERED: FENTANYL CITRATE INJ 50 MCG/1 ML 2 ML VIAL ONE (07:48)
[2017-05-14] MEDS ORDERED: ATROPINE SULFATE 0.1 MG/ML 5ML SYR IV PRN (08:00)
[2017-05-14] MEDS ORDERED: EpHEDrine SULFATE INJ 50 MG/ML AMP IV PRN (08:00)
[2017-05-14] MEDS ORDERED: ONDANSETRON INJ 2 MG/ML 2 ML VIAL IV PRN ×2 (08:00→11:00)
[2017-05-14] MEDS ORDERED: FENTANYL CITRATE INJ 50 MCG/1 ML 2 ML VIAL IV PRN (08:00)
[2017-05-14] MEDS ORDERED: DEXAMETHASONE SOD INJ 4 MG/ML VIAL ONE (08:32)
[2017-05-14] MEDS ORDERED: ONDANSETRON INJ 2 MG/ML 2 ML VIAL ONE (08:32)
[2017-05-14] MEDS ORDERED: CLINDAMYCIN 600 MG/54 ML D5W IV ONE (08:50)
[2017-05-14] MEDS ORDERED: NURSING VERBAL MED ORDER ONE ×2 (09:00→09:15)
[2017-05-14] MEDS ORDERED: ORTHO JOINT ANESTHETIC ONE (09:04)
[2017-05-14] MEDS ORDERED: POVIDONE-IODINE OP SOLN 30 ML BTL ONE (09:05)
[2017-05-14] MEDS ORDERED: BACITRACIN 50000 UNIT VIAL ONE (09:05)
--- NOTE | 2017-05-14 10:27 | [facility] Post Operative Brief Note ---
Immediate Operative Summary Operative Date May 14, 2017. Pre-Operative Diagnosis Left hip degenerative joint disease Post-Operative Diagnosis Left hip degenerative joint disease Procedure(s) Performed Left Total Hip Arthroplasty Surgeon Dr. Maciel Automotive Technician Instructor Surgeon(s) Lillie Patel PA-C Estimated Blood Loss 150 ml Findings severe OA Specimens a. left femoral head Complication(s) None Disposition Surgical ICU
[2017-05-14] MEDS ORDERED: ALUMINUM/MAGNESIUM/SIMETH (MAALOX MAX) 30 ML UDC PO PRN (11:00)
[2017-05-14] MEDS ORDERED: SOD PHOSPHATE/SOD BIPHOSPHATE ENEMA 132 ML BTL PR PRN (11:00)
[2017-05-14] MEDS ORDERED: BISACODYL 10 MG SUPP PR PRN (11:00)
[2017-05-14] MEDS ORDERED: TRAMADOL HCL 50 MG TAB PO PRN (11:00)
[2017-05-14] MEDS ORDERED: ZOLPIDEM TARTRATE 5 MG TAB PO PRN (11:00)
[2017-05-14] MEDS ORDERED: MAGNESIUM HYDROXIDE SUSP 30 ML UDC PO PRN (11:00)
[2017-05-14] MEDS ORDERED: DiphenhydrAMINE HCL 50 MG/ML VIAL IV PRN (11:00)
[2017-05-14] MEDS ORDERED: MoRPHine SULFATE 2 MG/ML CARP IV PRN (11:00)
--- NOTE | 2017-05-14 11:47 | DIAGNOSTIC IMAGING REPORT ---
AP PELVIS AND LEFT HIP 2 VIEWS CLINICAL HISTORY: Postop examination. Degenerative arthritis COMPARISON STUDY: 11/14/2016 FINDINGS: There is been no change in the appearance of total right hip arthroplasty. There is now evidence for a total left hip arthroplasty. The acetabular and femoral components appear well seated. There is no dislocation. There is an overlying surgical drain. IMPRESSION: Postsurgical changes of a total left hip arthroplasty. Electronically signed by: Trev Adamson M.D. 05/14/2017 11:46 AM Dictated Date/Time: 05/14/2017 11:45 AM
--- NOTE | 2017-05-14 11:59 | Anesthesiology Progress Note ---
Anesthesia Post Op Note Date & Time May 14, 2017 at 11:59 Vital Signs Pain Intensity: 0 Vital Signs Past 12 Hours Date Time Temp Pulse Resp B/P (MAP) Pulse Ox O2 Delivery O2 Flow Rate FiO2 05/14/17 11:35 37.0 61 16 117/78 99 Oxymask 2 05/14/17 11:25 61 16 122/69 100 Oxymask 10 05/14/17 11:15 71 16 122/73 100 Oxymask 10 05/14/17 11:05 61 16 116/69 100 Oxymask 10 05/14/17 10:57 36.5 78 16 106/69 100 Oxymask 10 05/14/17 09:17 77 18 128/72 (90) 100 Oxymask 7 05/14/17 07:20 37 80 22 118/74 99 Room Air Notes Mental Status: alert / awake / arousable, participated in evaluation Pt Amnestic to Procedure: Yes Nausea / Vomiting: adequately controlled Pain: adequately controlled Airway Patency, RR, SpO2: stable & adequate BP & HR: stable & adequate Hydration State: stable & adequate Neuraxial Anesthesia: was administered, sensory block is resolving Anesthetic Complications: no major complications apparent
[2017-05-14] MEDS: KETOROLAC TROMETHAMINE 30 MG/ML VIAL IV. SCH ×2 (12:55→19:35)
[2017-05-14] MEDS: D5W AND 1/2NSS + 20MEQ KCL 1,000 ML IV SCH ×2 (12:55→22:23)
--- NOTE | 2017-05-14 15:07 | OPERATIVE REPORT ---
DATE OF OPERATION: 05/14/2017 PREOPERATIVE DIAGNOSIS: Osteoarthritis left hip. POSTOPERATIVE DIAGNOSIS: Osteoarthritis left hip. PROCEDURE: Left connective total hip arthroplasty. SURGEON: Dr. Maciel. LIBRARIAN SPECIAL LIBRARY: Lillie Patel PA-C ANESTHESIA: Spinal. COMPLICATIONS: None. OPERATION AND FINDINGS: PROCEDURE: Following induction of adequate spinal anesthesia, the patient was placed in right lateral decubitus position and left Sandy-Langenbeck incision was made. Subcutaneous tissue was sharply dissected. Electrocautery used for hemostasis. The fascia was incised throughout the length of the wound and a baker scissor placed beneath the short external rotators. The pyriformis was tagged with #1 Vicryl. The short external rotators were divided from the posterior aspect of the femur using electrocautery. These were swept posteriorly. A T-capsulotomy incision was made and the hip was dislocated using a combination of flexion, adduction, and internal rotation. Exposure of the femoral neck with old-style Hohmann and a blunt Hohmann was carried out and a femoral rasp was utilized as a guide for making the appropriate level femoral neck cut. This bone fragment was removed and reserved on the back table. Next, attention was turned to the acetabulum where bone hook was used to retract the femur while the offset retractors were placed anterior and posteriorly. A double-angled Hohmann was placed in superior and anterior position exposing the acetabulum nicely. Acetabular labrum as well as posterior capsule elements were removed using a long knife and a long pickup. Fovea centralis was cleared of all soft tissue. Sequential reamings were carried up to a size 52 and decision was made to proceed with impaction of a size 52 trabecular metal cup. This was impacted and held using a single 35 mm bone screw. The acetabular liner was placed with 15 of elevated posterior wall in the superior and posterior position. Next, attention was turned to the femoral portion of the case where a Bovie and pickup was used to further clear short external rotators from their insertion on the femur. Box osteotome was used to gain access to the femoral canal and the T-handled rasp and a rattail rasp were used to further open and lateral the canal. Sequentially raspings were carried up to a size 3 which gave good fit and fill of the proximal femur. A trial reduction was carried out and a 132 degree femoral neck component was chosen as the size to be used. A -2.5 x 36 ceramic femoral head was impacted into position, +0 head was utilized. The trial reduction was stable in all degrees of rotation with no [id number] impingement. The hip was dislocated. The trial components were removed and the final femoral stem, neck, and femoral head combination were assembled on the back table and impacted into position. Hip was relocated. Range of motion checked once again successful and the wound was irrigated. The pyriformis repaired to the greater trochanter using #1 Vicryl [id number] suture. A Hemovac drain was placed and the fascia was closed using #1 Vicryl, subcutaneous tissue was closed using 0 Dexon, and skin was closed with claire. Sterile dressing of Adaptic, 4 x 4's, ABDs, and foam tape was applied. The patient tolerated the procedure well. Due to the complex nature of the procedure, the entire surgery was performed with the operational assistance of Lillie Patel PA-C. The seismic survey assistant, under direct supervision, was involved in the actual performance of all aspects of the surgical procedure including hemostasis, tissue retraction and incision, instrument management, patient positioning, and wound closure. I attest to the content of the Intraoperative Record and any orders documented therein. Any exception s are noted below.
[2017-05-14] MEDS: CLINDAMYCIN IV 600 MG in DEXTROSE 5% 50ML 50 ML IV SCH (16:50)
[2017-05-14] MEDS: ACETAMINOPHEN 500 MG TAB PO SCH (16:50)
[2017-05-14] MEDS: OXYCODONE HCL IR 5 MG TAB (IMMEDIATE RELEASE) PO PRN ×2 (18:16→22:48)
[2017-05-14] MEDS: ASPIRIN 81 MG ECTAB PO SCH (21:45)
[2017-05-14] MEDS: SENNA 8.6 MG TAB PO SCH (21:45)
[2017-05-14] MEDS: VENLAFAXINE HCL XR 75 MG CAPXR PO SCH (21:45)
[2017-05-15] MEDS: ACETAMINOPHEN 500 MG TAB PO SCH ×3 (00:35→16:16)
[2017-05-15] MEDS: CLINDAMYCIN IV 600 MG in DEXTROSE 5% 50ML 50 ML IV SCH (00:35)
[2017-05-15] MEDS: KETOROLAC TROMETHAMINE 30 MG/ML VIAL IV. SCH ×2 (00:36→06:20)
[2017-05-15 03:33] VITALS: BP 110/67; PULSE 84; TEMP 36.8; O2SAT 98
[2017-05-15] MEDS: OXYCODONE HCL IR 5 MG TAB (IMMEDIATE RELEASE) PO PRN ×4 (03:52→20:09)
[2017-05-15 05:51] LABS: BASO % 0.1 %; BASO ABS # 0.02 K/uL (0-0.2); COMPLETE YES; HEMATOCRIT 29.5 % (37-47); IG% 0.3 %; LYMPH % 10.6 %; LYMPH ABS # 2.04 K/uL (1.2-3.4); MEAN CELL VOLUME 79.1 fL (80-100); MEAN CORPUSCULAR HEMOGLOBIN 25.2 pg (25-34); MEAN CORPUSCULAR HGB CONC 31.9 g/dl (32-36); MEAN PLATELET VOLUME 9.6 fL (7.4-10.4); MONO % 8.6 %; NEUT % 80.4 %; PLATELET COUNT 403 K/uL (130-400); RED BLOOD COUNT 3.73 M/uL (4.2-5.4); WHITE BLOOD COUNT 19.26 K/uL (4.8-10.8)
[2017-05-15 06:18] LABS: CALCIUM 8.3 mg/dl (8.5-10.1); CREATININE 0.71 mg/dl (0.60-1.20)
--- NOTE | 2017-05-15 06:52 | Orthopedic Progress Note ---
Orthopedic Progress Note Date of Service May 15, 2017. Subjective Post OP Day: 1 Reports: feeling well, pain controlled w PO medications, Denies: complaints, chest pain, SOB, nausea / vomiting, light headedness, calf pain Objective calves soft nontender, N/V intact, hip located, capillary refill less than 2 sec., dressing C/D/I, A&O x3, toes mobile Date Time Temp Pulse Resp B/P (MAP) Pulse Ox O2 Delivery O2 Flow Rate FiO2 05/15/17 03:33 36.8 84 16 110/67 (81) 98 Room Air 05/14/17 23:29 36.6 72 16 118/76 (90) 100 Room Air 05/14/17 23:20 Room Air 05/14/17 19:42 36.5 79 18 105/67 (80) 96 Room Air 05/14/17 16:40 Room Air 05/14/17 14:51 36.6 76 16 106/68 (81) 100 4.0 05/14/17 13:51 36.7 72 16 104/68 (80) 100 4.0 05/14/17 12:45 71 16 117/77 (90) 100 4.0 05/14/17 12:17 64 16 116/80 (92) 100 4.0 05/14/17 11:45 Nasal Cannula 2.0 05/14/17 11:45 Nasal Cannula 2.0 05/14/17 11:35 37.0 61 16 117/78 99 Oxymask 2 05/14/17 11:25 61 16 122/69 100 Oxymask 10 05/14/17 11:15 71 16 122/73 100 Oxymask 10 05/14/17 11:05 61 16 116/69 100 Oxymask 10 05/14/17 10:57 36.5 78 16 106/69 100 Oxymask 10 05/14/17 09:17 77 18 128/72 (90) 100 Oxymask 7 05/14/17 07:20 37 80 22 118/74 99 Room Air Laboratory Results 24 Hours: Test 05/15/17 05:28 White Blood Count 19.26 K/uL Red Blood Count 3.73 M/uL Hemoglobin 9.4 g/dL Hematocrit 29.5 % Mean Corpuscular Volume 79.1 fL Mean Corpuscular Hemoglobin 25.2 pg Mean Corpuscular Hemoglobin Concent 31.9 g/dl Platelet Count 403 K/uL Mean Platelet Volume 9.6 fL Neutrophils (%) (Auto) 80.4 % Lymphocytes (%) (Auto) 10.6 % Monocytes (%) (Auto) 8.6 % Eosinophils (%) (Auto) 0.0 % Basophils (%) (Auto) 0.1 % Neutrophils # (Auto) 15.50 K/uL Lymphocytes # (Auto) 2.04 K/uL Monocytes # (Auto) 1.65 K/uL Eosinophils # (Auto) 0.00 K/uL Basophils # (Auto) 0.02 K/uL Assessment & Plan Assessment: POD #1 s/p Left connective total hip arthroplasty. -PT/OT -dvt proph with CLOVIS/SCD/ASA -zipline dressing -did HHPT after her right FROILAN, would like to do that this time as well -will plan for dc home with HHPT when stable, anticipate Friday Discharge Planning Discharge Planning: home with home health DVT Prophylaxis: TEDs, SCDs, ASA Therapy: Physical Therapy
--- NOTE | 2017-05-15 06:54 | Discharge Instructions ---
Discharge Instructions Date of Service May 15, 2017. Admission Reason for Admission: Left Hip Osteoarthritis Discharge Discharge Diagnosis / Problem: Left connective total hip arthroplasty Discharge Goals Goal(s): Decrease discomfort, Improve function, Increase independence Activity Recommendations Activity Limitations: as noted below Weightbearing Status: Left weightbearing (as tolerated) . Instructions / Follow-Up Instructions / Follow-Up ACTIVITY RECOMMENDATIONS: SELF CARE INSTRUCTIONS AFTER TOTAL HIP REPLACEMENT Until the incision and soft tissues around your hip have healed, there is a possibility that the hip prosthesis could dislocate. A. Observe the following precautions to prevent dislocation: 1. Don't bend your hip greater than 90 degrees. 2. Avoid crossing your legs or ankles while standing or lying. 3. Sit with your feet placed 6 inches apart. 4. When sitting, keep your knees below your hips. Sit on a firm surface, avoid deep, soft chairs and couches. Use an elevated toilet seat in the bathroom. 5. Don't bend over at the waist. Use a long handled shoehorn and a sock aid to help you put on your shoes and socks. A plastics supervisor can help you quill picking machine operator objects that are too high or too low to reach. 6. Keep car riding to a minimum for at least one month after surgery. B. Your balance may be shaky for a while. Use crutches or a walker until directed by your doctor. C. Use hand rails when walking on stairs. D. Wear low heeled shoes with non-slip soles. E. Be sure that your floors are free of things that could trip you - throw rugs , electrical cords, small objects. Avoid wet and waxed floors, especially with crutches and canes. F. Try to walk several times a day with rest periods between. G. Continue with all the exercises taught to you in the hospital. Again, make walking a part of your daily routine. SPECIAL CARE INSTRUCTIONS: VERY IMPORTANT TO READ AND REVIEW A. You may still be at risk for phlebitis and blood clots. 1. Wear surgical stockings (CLOVIS hose) for 2 weeks after surgery to improve circulation and reduce swelling. 2. Take Aspirin 81mg twice daily for 4 weeks or as directed by your doctor. This is your blood thinner. 3. High risk patients may be prescribed a stronger blood thinner if necessary. 4. If you are on Coumadin normally, your family doctor/computer trainer should monitor your blood work. Expect a phone call the day of or the day after bloodwork is drawn to adjust your dosage. B. You must take antibiotics before having dental work, bladder, bowel and other surgery. Your doctor will provide you with a permanent card to carry describing precautions. C. Call [facility] if you have a fever, redness or swelling around the incision, cloudy drainage from incision, or sudden increase in pain in your hip, not relieved by your regular pain medication. D. Please call the office at if you have any concerns or questions about your operation or recovery. * YOU MAY SHOWER, NO TUB BATHS UNTIL CLEARED BY YOUR DOCTOR. * WEAR CLOVIS HOSE 20 HOURS PER DAY FOR 2 WEEKS. * YOU SHOULD USE A WALKER OR CRUTCHES FOR 2-4 WEEKS. THIS WILL HELP PREVENT STRAIN ON YOUR HIP MUSCLE AND ALLOW IT TO HEAL PROPERLY. YOU MAY WEAN TO A CANE TOLERATED. * MOST PATIENTS WILL HAVE HOME NURSING FOR THERAPY. IF YOU DECIDE TO DO OUTPATIENT PHYSICAL THERAPY, PLEASE SCHEDULE THIS 3 TIMES PER WEEK. * YOU MAY HAVE A LARGE, BAND-SHERRI LIKE DRESSING (SILVERON). THIS WILL REMAIN ON YOUR INCISION FOR 7 DAYS, THEN CAN BE REMOVED. IF INCISION IS LEAKING THROUGH DRESSING, PLEASE CALL THE OFFICE . Zip Skin Closure You will be given instructions by nursing staff at the time of discharge to care for your Zip Closure System. This devices uses plastic straps to keep your incision closed and protected throughout your recovery. If you have any questions please refer to these instructions first. FOLLOW UP VISIT: If appointment is not already scheduled: Please call [facility] to make a follow-up appointment for 2 weeks after your surgery at . Current Hospital Diet Patient's current hospital diet: Regular Diet Discharge Diet Recommended Diet: Regular Diet Procedures Procedures Performed: Left Total Hip Arthroplasty Pending Studies Studies pending at discharge: no Laboratory Results Hemoglobin A1c Test 04/30/17 10:36 Range/Units Estimated Average Glucose 103 mg/dl Hemoglobin A1c 5.2 4.5-5.6 % Medical Emergencies . Who to Call and When: Medical Emergencies: If at any time you feel your situation is an emergency, please call 911 immediately. . Non-Emergent Contact Non-Emergency issues call your: Primary Care Provider, Surgeon . "Provider Documentation" section prepared by Richie Miguel. . VTE Core Measure Inpt VTE Proph given/why not?: Other Anticoagulation (ASA 81mg po bid x1 month) , T.E.DAnita Stockings, SCD's [place] Drug Monitoring Program Search Results: patient reviewed within database, no issues identified
[2017-05-15 07:19] VITALS: BP 123/76; PULSE 88; TEMP 37; O2SAT 97
[2017-05-15] MEDS ORDERED: DEXAMETHASONE 4 MG TAB PO SCH (07:30)
[2017-05-15] MEDS: D5W AND 1/2NSS + 20MEQ KCL 1,000 ML IV SCH (08:30)
[2017-05-15] MEDS: SPIRONOLACTONE 25 MG TAB PO SCH (08:48)
[2017-05-15] MEDS: LORATADINE 10 MG TAB PO SCH (08:48)
[2017-05-15] MEDS: ASPIRIN 81 MG ECTAB PO SCH ×2 (08:49→20:10)
[2017-05-15] MEDS: MULTIVITAMIN TAB PO SCH (08:49)
[2017-05-15] MEDS: PANTOprazole SOD 40 MG TAB PO SCH (08:49)
[2017-05-15 13:43] VITALS: BP 119/79; PULSE 77; TEMP 36.9; O2SAT 97
[2017-05-15 15:29] VITALS: BP 115/73; PULSE 81; TEMP 36.9; O2SAT 98
[2017-05-15 19:12] VITALS: BP 114/73; PULSE 73; TEMP 36.7; O2SAT 98
[2017-05-15] MEDS: VENLAFAXINE HCL XR 75 MG CAPXR PO SCH (20:10)
[2017-05-15] MEDS: SENNA 8.6 MG TAB PO SCH (20:10)
[2017-05-15 23:15] VITALS: BP 117/72; PULSE 76; TEMP 36.6; O2SAT 97
[2017-05-16] MEDS: OXYCODONE HCL IR 5 MG TAB (IMMEDIATE RELEASE) PO PRN ×2 (05:39→11:07)
--- NOTE | 2017-05-16 06:33 | Orthopedic Progress Note ---
Orthopedic Progress Note Date of Service May 16, 2017. Subjective Post OP Day: 2 Reports: feeling well, pain controlled w PO medications, Denies: complaints, chest pain, SOB, nausea / vomiting, light headedness, calf pain Objective calves soft nontender, N/V intact, capillary refill less than 2 sec., dressing C /D/I, A&O x3, toes mobile Date Time Temp Pulse Resp B/P (MAP) Pulse Ox O2 Delivery O2 Flow Rate FiO2 05/15/17 23:15 36.6 76 16 117/72 (87) 97 Room Air 05/15/17 23:15 Room Air 05/15/17 19:12 36.7 73 16 114/73 (87) 98 Room Air 05/15/17 15:30 Room Air 05/15/17 15:29 36.9 81 18 115/73 (87) 98 Room Air 05/15/17 13:43 36.9 77 18 119/79 (92) 97 Room Air 05/15/17 08:15 Room Air 05/15/17 07:19 37.0 88 18 123/76 (92) 97 Room Air Assessment & Plan Assessment: POD #2 s/p Left total hip arthroplasty. -PT/OT -dvt proph with CLOVIS/SCD/ASA -zipline dressing -did HHPT after her right FROILAN, would like to do that this time as well -will plan for dc home with HHPT when stable, likely after PT today Discharge Planning Discharge Planning: home with home health DVT Prophylaxis: TEDs, SCDs, ASA Therapy: Physical Therapy
[2017-05-16] MEDS ORDERED: RXC5 PO (06:37)
[2017-05-16] MEDS ORDERED: ONDA8TAB6 PO (06:37)
[2017-05-16] MEDS ORDERED: ACET-24 PO (06:37)
[2017-05-16] MEDS ORDERED: ULT50X PO (06:37)
[2017-05-16] MEDS ORDERED: ASPEC81 PO (06:37)
[2017-05-16 07:18] VITALS: BP 111/73; PULSE 74; TEMP 36.6; O2SAT 97
[2017-05-16] MEDS: ASPIRIN 81 MG ECTAB PO SCH (07:46)
[2017-05-16] MEDS: SPIRONOLACTONE 25 MG TAB PO SCH (07:46)
[2017-05-16] MEDS: ACETAMINOPHEN 500 MG TAB PO SCH ×2 (07:46)
[2017-05-16] MEDS: PANTOprazole SOD 40 MG TAB PO SCH (07:47)
[2017-05-16] MEDS: MULTIVITAMIN TAB PO SCH (07:47)
[2017-05-16] MEDS: LORATADINE 10 MG TAB PO SCH (07:47)
[2017-05-16 09:40] VITALS: BP 111/73; PULSE 74; TEMP 36.6; O2SAT 97
--- NOTE | 2017-05-26 12:38 | DISCHARGE SUMMARY ---
DISCHARGE DIAGNOSIS: Degenerative joint disease, left hip. SECONDARY DIAGNOSIS: None. CONSULTS: None. COMPLICATIONS: None. PROCEDURE: The patient underwent a left total hip arthroplasty with Dr. Maciel on 05/14/2017. BRIEF HISTORY: Please see previously dictated history and physical. HOSPITAL SUMMARY: The patient was admitted on the above day for the above procedure. Procedure went without complication. Postop day #1, the patient was feeling well without complaints. She denied chest pain or shortness of breath. Vital signs were stable. She was afebrile. Dressing was clean, dry and intact. She was neurovascularly intact. Calves were soft and nontender. Hemoglobin was 9.4. The patient began physical therapy per protocol. Postop day #2, the patient continued to improve. She denied chest pain or shortness of breath. Vital signs were stable. She was afebrile. Dressing was clean, dry and intact. She was neurovascularly intact. Calves were soft and nontender. She progressed with physical therapy and was discharged to home later that day in stable condition. For further review please see the chart. LABORATORY, X-RAY DATA AND DISCHARGE INSTRUCTIONS: As per chart.
== END 2017-05-16 11:25 | disposition home health service (06) | DRG 470 ==
LOC: C.ACU 06:48 → C.3E 07:15 → ENRESERV 11:14
PROC: 0SRB03Z Replacement of Left Hip Joint with Ceramic Synthetic Substitute, Open Approach (ICD-10-PCS; principal; 2017-05-14 09:15)
DX: M16.12 Unilateral primary osteoarthritis, left hip (principal); Z96.641 Presence of right artificial hip joint